=== PATIENT | female | born 1940 | race Caucasian/White ===

== ENCOUNTER → 2016-12-19 | Outpatient (CLI) | payer MEDICARE ==
[~2016-12-19] MED LIST: ADVAIR 100/501 E1 INH; ALBUTEROL0.09 MG/A2 INH; BONIVA150 MG PO; NASONEX0.05 MG/AC NAS; NORVASC5 MG PO; PRAVACHOL40 MG PO; SERTRALINE100 MG PO; SYNTHROID0.125 MG PO; XANAX XR0.5 MG PO
== END | disposition home or self-care (01) ==
LOC: RAD 08:21
DX: J30.1 Allergic rhinitis due to pollen (principal); M26.622 Arthralgia of left temporomandibular joint; R05 Cough

== ENCOUNTER 2017-02-07 21:05 | Inpatient (IN) | payer MEDICARE ==
[~2017-02-07] VITALS: Ht 185.4 cm; Wt 77.4 kg
--- NOTE | ~2017-02-07 | PR ---
[place], [place] PROGRESS NOTE NAME: ARIEL EVANS UNIT #: [id number] ROOM: 522 DOCTOR: CELINA CASTILLO MD BIRTHDATE: [birth year] DOS: 02/09/2017 PULMONARY FOLLOWUP SUBJECTIVE: She has been noted to have severe nonproductive cough as previously and it remains unchanged. She denies symptoms of chest pain. The patient was still noted with symptoms of shortness of breath at rest. She is currently noted n.p.o. past midnight. Bronchoscopy planned for today. OBJECTIVE: VITAL SIGNS: Normal temperature, respiratory rate 16, heart rate 96, blood pressure 105/71. The pulse oxygen saturation of the patient was noted as 95% on 2 liters nasal cannula. HEENT: Examination shows no new change. NECK: Supple. CARDIOVASCULAR: S1, S2 audible. LUNGS: Diffuse expiratory wheezing, no crackles. ABDOMEN: Soft, nontender. LABORATORY DATA: CBC today: WBC count 13.7, hemoglobin 10.2, hematocrit 30.7, platelet count was normal. BMP of patient was noted as glucose 151, BUN 24, creatinine 1.03. Sodium 146, chloride of 117, carbon dioxide of 19. IMPRESSION: The patient with persistent ongoing acute exacerbation of bronchial asthma with severe acute bronchitis and mucus plug infection of the major airways and the patient remains symptomatic with current maximal medical therapy, n.p.o. for bronchoscopy. PLAN OF TREATMENT: Proceed with bronchoscopy as planned for the patient today. Further treatment change if necessary will be done for this patient after the completion of bronchoscopy. In the meantime, continue other previous therapy, plan of management and usual care. Supportive care, other treatments and therapies. Continuation of the corticosteroids, same dose. Bronchodilators. [place], [place] PROGRESS NOTE NAME: ARIEL EVANS UNIT #: [id number] ROOM: 522 DOCTOR: CELINA CASTILLO MD BIRTHDATE: [birth year] CELINA FAM MD CM:PNTRANS [id number] CELINA TRINH MD 02/09/17 1140 interface
--- NOTE | ~2017-02-07 | PR ---
[place], [place] PROGRESS NOTE [id number] UNIT #: [id number] ROOM: 522 DOCTOR: CRISTEL TRINH MD,CELINA BIRTHDATE: [birth year] DOS: 02/11/2017 SUBJECTIVE: She has been noted further continued improvement and resolution of the acute respiratory complaints. Cough has been subsiding. There were no symptoms of chest pain or any abdominal pain. OBJECTIVE: VITAL SIGNS: For the patient which has been recorded showed the temperature noted as normal, respiratory rate 20, heart rate of 88, blood pressure 149/86. The pulse oxygen saturation on room air is 93% saturation recorded. HEENT: Showed no acute change. NECK: Supple. CARDIOVASCULAR: S1, S2 audible. LUNGS: The patient was noted without any wheeze or crackles at the present time. ABDOMEN: Soft, nontender. IMPRESSION: The patient with progressive resolution of acute exacerbation of bronchial asthma, acute tracheobronchitis. Cultures of the bronchial washing noted as normal farrah. PLAN OF MANAGEMENT: The patient could be discharged on tapering dose of prednisone and oral antibiotic with outpatient follow suggested post discharge. Other supportive therapy, plan and management to progress. ECLINA FAM MD CM:PNTRANS [id number] CELINA TRINH MD 02/12/17 0053 interface
--- NOTE | ~2017-02-07 | PR ---
[place], [place] PROGRESS NOTE NAME: ARIEL EVANS UNIT #: [id number] ROOM: 522 DOCTOR: CRISTEL TRINH MD,CELINA BIRTHDATE: [birth year] DOS: 02/12/2017 PULMONARY PROGRESS NOTE SUBJECTIVE: She has been noted shortness of breath with exertion. The coughing has been subsiding progressively. Wheezing has improved significantly. The patient was not discharged home yesterday. PHYSICAL EXAMINATION: VITAL SIGNS: Vital signs of the patient which have been recorded, showed the temperature noted as normal, respiratory rate recorded as 20, heart rate 77, blood pressure 144/91. HEENT: Examination shows no new change. NECK: Supple. CARDIOVASCULAR: S1, S2 audible. LUNGS: Noted without any wheezing or crackles. ABDOMEN: Soft, nontender. LABORATORY DATA: There were no new labs done in the last 24 hours. IMPRESSION: The patient with progressive resolution of acute exacerbation of bronchial asthma and acute shortness of breath with exertion noted secondary to underlying bronchial asthma, which has been improving. PLAN OF TREATMENT: She has been ordered assessment, possible home oxygen need. She could be discharged whenever desired by the primary care attending, and pulmonary followup to be established post discharge. CELINA FAM MD CM:PNTRANS [id number] CELINA TRINH MD 02/12/17 1546 interface
--- NOTE | ~2017-02-07 | PROC NOTE ---
[place], [place] PROCEDURE NOTE NAME: ARIEL EVANS UNIT #: [id number] ROOM: 522 DOCTOR: CRISTEL TRINH MD,CELINA BIRTHDATE: [birth year] DOS: 02/09/2017 PREOPERATIVE DIAGNOSIS: The patient with severe cough with suspected mucus plugs of the airways. POSTOPERATIVE DIAGNOSIS: Severe infection of multiple plugs and mucus endobronchial tree bilaterally with finding of acute tracheobronchitis. PROCEDURE DESCRIPTION: Informed consent obtained from the patient. She was brought to the OR and placed in supine position. Conscious sedation administered by the Anesthesia Department. After achieving appropriate sedation, airway introduced into the mouth. Bronchoscope advanced to the airway into laryngeal area. Epiglottis and vocal cords were seen. Vocal cord was moving symmetrically with movements. The bronchoscope advanced into the airway into laryngeal area. Epiglottis was seen. The bronchoscope advanced to the vocal cord into the tracheal lumen and noted with copious amount of thick mucus secretion with some purulent secretion ____ melba level. Right upper, right middle, right lower, left upper, lingular lower lobe bronchi were noted with severe impaction with large multiple plugs of the mucus. Secretions suctioned out clear with normal saline wash and sent for cultures. Procedure well tolerated by the patient without any complications. Postoperative findings will be discussed with the patient once the patient recovers from the effects of acute sedation. CELINA FAM MD CM:PROCNOTE:PROCEDURE NOTE [id number] CELINA TRINH MD
--- NOTE | ~2017-02-07 | PR ---
[place], [place] PROGRESS NOTE [id number] UNIT #: [id number] ROOM: 522 DOCTOR: CRISTEL TRINH MD,CELINA BIRTHDATE: [birth year] DOS: 02/10/2017 SUBJECTIVE: She has had bronchoscopy done yesterday with marked reduction and improvement. Cough was still noted as [id number], nonproductive cough. Denies symptoms of hemoptysis. Chest pain still noted under the rib because of the cough. OBJECTIVE: VITAL SIGNS: Blood pressure was noted 131/69, respiratory rate 20, heart rate of 96, temperature was normal. HEENT: Showed no new change. NECK: Supple. CARDIOVASCULAR: S1, S2 audible. LUNGS: Noted with scattered wheezing in the lungs. There were no crackles. ABDOMEN: Soft, nontender, bowel sounds present. LABORATORY DATA: The sputum culture for this patient was noted as normal farrah. Culture of the bronchial washing showing normal farrah. Preliminary findings culture results were pending. Gram stain of yesterday's moderate white blood cells, epithelial cells, gram-positive cocci in pairs and few gram-positive cocci in chain and clusters. Blood culture, no bacterial growth as well. IMPRESSION: 1. The patient with progressive resolution and improvement has been continued in acute exacerbation of bronchial asthma. The bronchoscopy resulted in marked improvement in symptoms after removal of the multiple plugs and mucus. Preliminary culture was noted as no bacterial growth. PLAN OF TREATMENT: The patient has been started for symptomatic complaints of cough with the use of Robitussin with codeine. Decrease Solu-Medrol 40 mg b.i.d. today. Other supportive plan of therapy as well. Potential discharge for the patient be considered for the morning. CELINA FAM MD CM:PNTRANS [id number] CELINA TRINH MD 02/11/17 0708 interface
--- NOTE | ~2017-02-07 | CON ---
[place], [place] REPORT OF CONSULTATION NAME: ARIEL EVANS [facility] #: [id number] UNIT #: [id number] ROOM: 522 DOCTOR: CELINA CASTILLO MD BIRTHDATE: [birth year] DOS: 02/08/2017 CONSULTATION REQUESTED BY: Hospitalist services. REASON FOR CONSULTATION: To assess the patient for ongoing respiratory symptoms. HISTORY OF PRESENT ILLNESS: This is a 76-year-old white female who has been admitted under hospitalist services on 02/07/2017. The patient developed acute severe cough for the past few days, which has been noted significantly severe. The cough has been noted, which was associated with green sputum expectoration at times and other time noted dry. Cough has been noted lasting for several hours at times per patient. This is causing some pain in the ribcage for the patient as well. The patient was noted with symptoms of shortness of breath and wheezing as well. She does complain of symptoms of chest tightness in the chest. The patient denies any symptoms of hemoptysis. PAST MEDICAL HISTORY: The patient was known with history of: 1. Hypothyroidism. 2. Allergic rhinitis. 3. Bronchial asthma, severity unknown. 4. Gastroesophageal reflux disease. 5. Anxiety disorder. 6. Hypercholesterolemia. 7. Hyperlipidemia. PAST SURGICAL HISTORY: None. SOCIAL HISTORY: She is a nonsmoker lifetime and has 3 children. Denies history of alcohol use or any illicit drug use. FAMILY HISTORY: Noncontributory. HOME MEDICATIONS: Listed, use of Norvasc, sertraline, pravastatin, Xanax, Ventolin HFA inhaler, Nasonex, Advair, fenofibrate, levothyroxine, losartan and omeprazole. DRUG ALLERGIES: No known drug allergies. REVIEW OF SYSTEMS: CONSTITUTIONAL: Fatigue and tiredness noted without any symptoms of fever or chills. EYES: Denies any burning, redness, or tenderness. EARS, NOSE, AND THROAT: Denies sore throat, hoarseness, otalgia, postnasal drainage. CARDIOVASCULAR: Denies any palpitations, edema of the lower extremities or syncopal episodes. GASTROINTESTINAL: Denies dysphagia, nausea, vomiting, diarrhea, abdominal pain, hematemesis, melena, or dysphagia. Denies history of abnormal weight loss. GENITOURINARY: Denies dysuria, suprapubic pain, hematuria. [place], [place] REPORT OF CONSULTATION NAME: RAIEL EVANS UNIT #: [id number] ROOM: 522 DOCTOR: CELINA CASTILLO MD BIRTHDATE: [birth year] MUSCULOSKELETAL: Denies acute joint pain, redness, or tenderness. SKIN: Denies any lesions or rashes. CENTRAL NERVOUS SYSTEM: Denies dizziness, headache, diplopia or syncopal episodes. Remaining systems were reviewed and they were noted all negative. PHYSICAL EXAMINATION: GENERAL: This is a 76-year-old female who has been currently noted sitting on the bed, noted excessive coughing at the time of the assessment, which is noted nonproductive. VITAL SIGNS: Height 6 feet 1 inch, weight 270 pounds, BMI 22.5. Normal temperature, respiratory rate 18-24, heart rate of 93-100, blood pressure 159/100-107/52. Pulse oxygen saturation on room air 96% saturation. HEENT: Showed no new change. NECK: Supple. CARDIOVASCULAR: S1, S2 audible. LUNGS: Diffuse reduction in breath sounds, expiratory wheezing. There were no crackles. ABDOMEN: Soft, nontender. EXTREMITIES: Shows no edema, clubbing, cyanosis. CENTRAL NERVOUS SYSTEM: Cranial nerves 2-12 intact. No focal deficit. MUSCULOSKELETAL: No acute deformities. SKIN: Showed no lesions or rashes. LABORATORY DATA: CBC on 02/07/2017, essentially noted as normal except eosinophils 11.9%. Lactic acid 0.7 yesterday. CMP yesterday, BUN 34, creatinine 1.63, glucose 128. Troponin for the patient this morning and yesterday were noted normal. One view chest x-ray that was done on 02/07/2017 shows mild hyperinflation without any acute pulmonary infiltration. BMP this morning, BUN 30, creatinine 1.39, glucose 167. Carbon dioxide 18. CBC this morning, WBC count 6.0, hemoglobin 11.7, hematocrit 35.3, platelet count 267,000. The PT and PTT for this patient was noted as normal PT and PTT. Platelet function assay for this patient was ordered today and it was normal as well. IMPRESSION: 1. The patient admitted to the hospital, noted with severe acute exacerbation of bronchial asthma, remains very symptomatic with severe excessive coughing with current treatment, which has been provided, noted only partial resolution. She has been receiving the high dose of corticosteroids, Solu-Medrol 60 mg q.8 hours, also receiving Mucinex and other cough medications as well. She has been receiving the antibiotics. The patient has Levaquin. 2. Past history of allergic rhinitis, known as well. PLAN OF TREATMENT: Order the sputum for Gram stain and culture. Because of severe excessive coughing with infection and mucus impaction noted since the patient has been noted sick over a week, she will benefit from therapeutic bronchoscopy which was scheduled to be done tomorrow morning. The n.p.o. past midnight status has been made for this patient for the bronchoscopy. Other [place], [place] REPORT OF CONSULTATION NAME: ARIEL EVANS UNIT #: [id number] ROOM: 522 DOCTOR: CRISTEL TRINH MD,CELINA BIRTHDATE: [birth year] supportive therapy, plan of management as previously in progress. Usual care, other supportive plan of management and treatments. Further treatment changes will be done based on the progression of the illness. CELINA FAM MD CM:CONSTR:REPORT OF CONSULTATION 1203 02/08/17 1431 interface
[2017-02-07 21:12] VITALS: BP 159/100
[2017-02-07] MEDS ORDERED: FENOFIBRATE48 M1 PO (21:18)
[2017-02-07] MEDS ORDERED: SYNTHROID,LEV175 MCG PO (21:19)
[2017-02-07] MEDS ORDERED: LOSARTAN POTAS100 M1 PO (21:19)
[2017-02-07] MEDS ORDERED: NOVAPLUS V0.09 MG/Ac INH (21:19)
[2017-02-07] MEDS ORDERED: OMEPRAZOLE40 MG PO (21:19)
[2017-02-07 21:45] LABS: BASO # 0.1 10*3/uL (0.0-0.1); BASO % 1.2 % (0.0-1.0); EOS % 11.9 % (1.0-4.0); HEMATOCRIT 37.4 % (37.0-47.0); HEMOGLOBIN 12.4 g/dl (12.0-16.0); LYMPH # 2.8 10*3/uL (1.3-4.4); LYMPH % 33.9 % (27.0-41.0); MEAN CELL VOLUME 94.2 fl (81.0-99.0); MEAN CORPUSCULAR HGB 31.2 pg (27.0-31.0); MEAN CORPUSCULAR HGB CONC 33.2 g/dl (33.0-37.0); MONO # 0.6 10*3/uL (0.1-1.0); MONO % 6.8 % (3.0-9.0); NEUT # 3.8 10*3/uL (2.3-7.9); PLATELET COUNT AUTOMATED 321 10*3/uL (130-400); RED BLOOD COUNT 3.97 10*6/uL (4.10-5.10); RED CELL DISTRI WIDTH 12.1 % (0-14.5); WHITE BLOOD COUNT 8.2 10*3/uL (4.8-10.8)
[2017-02-07 22:03] LABS: ALBUMIN 3.8 gm/dl (3.1-4.5); ALKALINE PHOSPHATASE 63 U/L (45-117); BILIRUBIN, TOTAL 0.3 mg/dl (0.2-1.0); BUN 34 mg/dl (7-24); CARBON DIOXIDE 23 mmol/L (21-32); CHLORIDE 109 mmol/L (98-107); EST GLOM FILT AFRICAN AMERICAN 38 ml/min; GLUCOSE 128 mg/dL (65-99); POTASSIUM 3.7 mmol/L (3.5-5.1); SGOT/AST 17 IU/L (3-35); SGPT/ALT 21 U/L (12-78); SODIUM 144 mmol/L (136-145); TOTAL PROTEIN 7.4 gm/dL (6.4-8.2)
[2017-02-07 22:05] LABS: TROPONIN I < 0.015 ng/ml (<0.045)
[2017-02-07 22:18] VITALS: BP 120/71
[2017-02-07 23:17] VITALS: BP 136/64
[2017-02-08] VITALS: BP 140/72
[2017-02-08 05:31] LABS: HEMATOCRIT 35.3 % (37.0-47.0); HEMOGLOBIN 11.7 g/dl (12.0-16.0); MEAN CELL VOLUME 94.9 fl (81.0-99.0); MEAN CORPUSCULAR HGB 31.5 pg (27.0-31.0); MEAN CORPUSCULAR HGB CONC 33.1 g/dl (33.0-37.0); MEAN PLATELET VOLUME 10.7 fl (9.6-12.3); PLATELET COUNT AUTOMATED 267 10*3/uL (130-400); RED BLOOD COUNT 3.72 10*6/uL (4.10-5.10); RED CELL DISTRI WIDTH 12.3 % (0-14.5)
[2017-02-08 05:41] LABS: HEMOGLOBIN A1c 6.2 % (4.8-5.6)
[2017-02-08 05:50] LABS: FREE T4 1.86 ng/dl (0.76-1.46); MAGNESIUM 2.6 mg/dL (1.5-2.1); PHOSPHOROUS 2.3 mg/dL (2.5-4.9); POTASSIUM 3.7 mmol/L (3.5-5.1)
[2017-02-08 05:56] LABS: THYROID STIM HORMONE (HS) 0.257 uIU/ml (0.358-4.75)
[2017-02-08 06:09] LABS: LYMPHOCYTE # 0.7 10*3/uL (1.3-4.4); MONOCYTE # 0.1 10*3/uL (0.1-1.0); NEUTROPHIL # 5.2 10*3/uL (2.3-7.9); NEUTROPHILS 87 % (47-73); PLATELET SUFFICIENCY NORMAL (NORMAL); TOTAL CELLS COUNTED 100 #CELLS
[2017-02-08 06:26] LABS: FOLIC ACID 18.47 ng/mL (>5.38)
[2017-02-08 08:00] VITALS: BP 107/52
[2017-02-08 09:58] LABS: PROTHROMBIN TIME 11.1 SECONDS (9.0-12.4)
[2017-02-08 10:22] LABS: COL/ADP 95 SECONDS (63-105); COL/EPI 170 SECONDS (86-157)
[2017-02-08] MEDS ORDERED: TRAZODONE50 MG PO (10:52)
[2017-02-08] MEDS ORDERED: ZOLOFT50 MG PO (10:53)
[2017-02-08 12:00] VITALS: BP 111/47
[2017-02-08 16:00] VITALS: BP 114/54
[2017-02-08 20:00] VITALS: BP 114/54
[2017-02-09] VITALS (10 sets, daily range): BP systolic 98–120; BP diastolic 42–75
[2017-02-09 06:03] LABS: BASO % 0.1 % (0.0-1.0); HEMATOCRIT 30.7 % (37.0-47.0); HEMOGLOBIN 10.2 g/dl (12.0-16.0); IG # 0.1 10*3/uL (0.0-0.1); LYMPH % 7.1 % (27.0-41.0); MEAN CELL VOLUME 95.6 fl (81.0-99.0); MEAN CORPUSCULAR HGB 31.8 pg (27.0-31.0); MEAN CORPUSCULAR HGB CONC 33.2 g/dl (33.0-37.0); MEAN PLATELET VOLUME 9.9 fl (9.6-12.3); MONO # 0.7 10*3/uL (0.1-1.0); MONO % 5.1 % (3.0-9.0); NEUT # 11.9 10*3/uL (2.3-7.9); NEUT % 87.1 % (47.0-73.0); PLATELET COUNT AUTOMATED 304 10*3/uL (130-400); RED BLOOD COUNT 3.21 10*6/uL (4.10-5.10); RED CELL DISTRI WIDTH 12.8 % (0-14.5); WHITE BLOOD COUNT 13.7 10*3/uL (4.8-10.8)
[2017-02-09 06:32] LABS: BUN 24 mg/dl (7-24); CARBON DIOXIDE 19 mmol/L (21-32); CHLORIDE 117 mmol/L (98-107); EST GLOM FILT AFRICAN AMERICAN > 60 ml/min; GLUCOSE 151 mg/dL (65-99); POTASSIUM 4.2 mmol/L (3.5-5.1); SODIUM 146 mmol/L (136-145)
[2017-02-10] VITALS: BP 117/64
[2017-02-10 06:38] LABS: BASO % 0.1 % (0.0-1.0); HEMATOCRIT 31.4 % (37.0-47.0); HEMOGLOBIN 10.2 g/dl (12.0-16.0); IG # 0.2 10*3/uL (0.0-0.1); LYMPH # 1.2 10*3/uL (1.3-4.4); LYMPH % 7.5 % (27.0-41.0); MEAN CELL VOLUME 96.3 fl (81.0-99.0); MEAN CORPUSCULAR HGB 31.3 pg (27.0-31.0); MEAN CORPUSCULAR HGB CONC 32.5 g/dl (33.0-37.0); MEAN PLATELET VOLUME 10.1 fl (9.6-12.3); MONO # 0.6 10*3/uL (0.1-1.0); MONO % 4.1 % (3.0-9.0); NEUT # 13.4 10*3/uL (2.3-7.9); NEUT % 87.3 % (47.0-73.0); PLATELET COUNT AUTOMATED 319 10*3/uL (130-400); RED BLOOD COUNT 3.26 10*6/uL (4.10-5.10); RED CELL DISTRI WIDTH 12.9 % (0-14.5); WHITE BLOOD COUNT 15.4 10*3/uL (4.8-10.8)
[2017-02-10 07:05] LABS: BUN 21 mg/dl (7-24); CARBON DIOXIDE 21 mmol/L (21-32); CHLORIDE 114 mmol/L (98-107); EST GLOM FILT AFRICAN AMERICAN > 60 ml/min; GLUCOSE 115 mg/dL (65-99); SODIUM 144 mmol/L (136-145)
[2017-02-10 08:00] VITALS: BP 128/68
[2017-02-10 12:00] VITALS: BP 131/69
[2017-02-10 14:08] LABS: ACID FAST SPEC PROCESSING Concentration (.)
[2017-02-10 16:00] VITALS: BP 126/60
[2017-02-10 20:00] VITALS: BP 151/71
[2017-02-11] VITALS: BP 140/63
[2017-02-11 08:00] VITALS: BP 149/86
[2017-02-11 12:00] VITALS: BP 142/86
[2017-02-11 16:00] VITALS: BP 143/88
[2017-02-11 20:00] VITALS: BP 143/87
[2017-02-12] VITALS: BP 150/84
[2017-02-12 08:00] VITALS: BP 144/91
[2017-02-12 12:00] VITALS: BP 135/7
[2017-02-12] MEDS ORDERED: ADVAIR 100/501 E1 INH (14:34)
[2017-02-12] MEDS ORDERED: DOXYCYCLINE100 M3 PO (14:34)
[2017-02-12] MEDS ORDERED: PREDNISONE10 MG PO (14:34)
== END 2017-02-12 15:23 | disposition home health service (06) | DRG 871 ==
LOC: ED 21:05 → EDHOLD 22:55 → 5E 22:55
PROVIDERS: Emergency Medicine Emergency Medical Services; Internal Medicine; Internal Medicine Critical Care Medicine
DX: A41.9 Sepsis, unspecified organism (principal); J18.9 Pneumonia, unspecified organism; N17.0 Acute kidney failure with tubular necrosis; T17.490A Other foreign object in trachea causing asphyxiation, initial encounter; J45.901 Unspecified asthma with (acute) exacerbation; E87.8 Other disorders of electrolyte and fluid balance, not elsewhere classified; R73.9 Hyperglycemia, unspecified; I10 Essential (primary) hypertension; E78.2 Mixed hyperlipidemia; F32.9 Major depressive disorder, single episode, unspecified; E03.9 Hypothyroidism, unspecified; R65.20 Severe sepsis without septic shock; E83.41 Hypermagnesemia; E83.39 Other disorders of phosphorus metabolism; J20.9 Acute bronchitis, unspecified; K21.9 Gastro-esophageal reflux disease without esophagitis; F41.9 Anxiety disorder, unspecified; E78.00 Pure hypercholesterolemia, unspecified; Z66 Do not resuscitate; Z88.0 Allergy status to penicillin; Z80.9 Family history of malignant neoplasm, unspecified; Z82.49 Family history of ischemic heart disease and other diseases of the circulatory system; Z79.899 Other long term (current) drug therapy; Z90.49 Acquired absence of other specified parts of digestive tract; Z91.018 Allergy to other foods; Z72.89 Other problems related to lifestyle; X58.XXXA Exposure to other specified factors, initial encounter; Y93.89 Activity, other specified; Y92.89 Other specified places as the place of occurrence of the external cause; Y99.8 Other external cause status